=== PATIENT | male | born 1960 | race Caucasian/White ===

== ENCOUNTER 2018-07-11 09:12 | Outpatient (CLI) | payer MEDICAID | END 2018-07-11 09:13 | disposition home or self-care (01) | LOC: C.LAB 09:12 | DX: I12.9 Hypertensive chronic kidney disease with stage 1 through stage 4 chronic kidney disease, or unspecified chronic kidney disease (principal) ==

== ENCOUNTER 2018-07-14 13:33 | Outpatient (CLI) | payer MEDICAID | END 2018-07-14 13:34 | disposition home or self-care (01) | LOC: C.USIC 13:34 | DX: N18.3 Chronic kidney disease, stage 3 (moderate) (principal); I12.9 Hypertensive chronic kidney disease with stage 1 through stage 4 chronic kidney disease, or unspecified chronic kidney disease ==

== ENCOUNTER 2018-08-04 10:41 | Outpatient (CLI) | payer MEDICAID | END 2018-08-04 10:42 | disposition home or self-care (01) | LOC: C.MRIC 10:41 ==